=== PATIENT | male | born 1960 | race Caucasian/White ===

== ENCOUNTER 2017-11-04 07:05 | Emergency (ER) | payer BC ==
[~2017-11-04] VITALS: Ht 172.7 cm; Wt 104.3 kg
[2017-11-04] MEDS ORDERED: LOSARTAN POTASS25 MG PO (07:15)
[2017-11-04] MEDS ORDERED: CYCLOBENZAPRINE10 MG PO (07:49)
== END 2017-11-04 08:00 | disposition home or self-care (01) ==
LOC: ED 07:05
DX: S29.012A Strain of muscle and tendon of back wall of thorax, initial encounter (principal); I10 Essential (primary) hypertension; Z79.899 Other long term (current) drug therapy; X50.0XXA Overexertion from strenuous movement or load, initial encounter
CPT/HCPCS: 99283